=== PATIENT | female | born 1980 | race Caucasian/White ===

== ENCOUNTER → 2022-06-15 | Outpatient (CLI) | payer OTHER | LOC: M WHC 14:53 | PROVIDERS: ATTEND Family Medicine | DX: Z12.31 Encounter for screening mammogram for malignant neoplasm of breast (principal) ==

== ENCOUNTER → 2022-07-06 | Outpatient (CLI) | payer OTHER | LOC: M WHC 13:41 | PROVIDERS: ATTEND Family Medicine | DX: R92.8 Other abnormal and inconclusive findings on diagnostic imaging of breast (principal) ==

== ENCOUNTER 2023-05-20 11:15 | Outpatient (CLI) | payer OTHER ==
[2023-05-20] VITALS (7 sets, daily range): BP systolic 109–134; BP diastolic 57–92; O2SAT 99–100
[~2023-05-20] VITALS: Ht 157.5 cm; Wt 61.1 kg
[2023-05-20] MEDS ORDERED: TUMS500C PO (11:32)
[2023-05-20] MEDS ORDERED: PRENTAB9 PO (11:32)
[2023-05-20] MEDS ORDERED: ASPI81CH33 PO (11:32)
[2023-05-20] MEDS ORDERED: HOME MED LIST COMPLETE! XX SCH (11:35)
[2023-05-20] MEDS ORDERED: FLUCONAZOLE 50MG TABLET PO ONE (12:50)
[2023-05-20] MEDS: BETAMETHASONE SOLUSPAN 6MG/ML 5ML VIAL IM SCH (14:59)
[2023-05-20 15:35] LABS: HEMOGLOBIN 12.5 g/dl (12.0-15.5); MEAN CORPUSCULAR HEMOGLOBIN 30.3 pg (27.0-33.0); MEAN CORPUSCULAR HGB CONC 32.9 g/dl (32.0-36.5); MEAN CORPUSCULAR VOLUME 92.2 fl (80.0-96.0); PLATELET COUNT, AUTOMATED 206 10^3/uL (150-450); RED BLOOD COUNT 4.12 10^6/uL (4.00-5.40); WHITE BLOOD COUNT 4.7 10^3/uL (4.0-10.0)
[2023-05-20 15:56] LABS: GC DNA AMPLIFICATION NEGATIVE (NEGATIVE)
[2023-05-20 15:58] LABS: ALBUMIN 2.6 G/DL (3.2-5.2); ALKALINE PHOSPHATASE 107 U/L (46-116); ALT/SGPT 40 U/L (7.0-40); AST/SGOT 22 U/L (<34); BILIRUBIN,TOTAL 0.4 MG/DL (0.3-1.2); BLOOD UREA NITROGEN 12 MG/DL (9-23); CALCIUM LEVEL 8.8 MG/DL (8.5-10.1); CARBON DIOXIDE LEVEL 24 MMOL/L (20-31); CHLORIDE LEVEL 107 MMOL/L (98-107); CREATININE FOR GFR 0.64 MG/DL (0.55-1.30); GLOMERULAR FILTRATION RATE > 60.0 (>58); GLUCOSE, FASTING 119 MG/DL (60-100); POTASSIUM SERUM 3.7 MMOL/L (3.5-5.1); SODIUM LEVEL 139 MMOL/L (136-145); TOTAL PROTEIN 6.2 G/DL (5.7-8.2)
[2023-05-20] MEDS ORDERED: ACETAMINOPHEN 500 MG TAB PO ONE (16:45)
[2023-05-21 03:34] VITALS: BP 118/73
[2023-05-21 07:06] VITALS: BP 122/81
[2023-05-21 10:43] VITALS: BP 137/87
[2023-05-21] MEDS: BETAMETHASONE SOLUSPAN 6MG/ML 5ML VIAL IM SCH (15:29)
== END 2023-05-21 15:40 | disposition home or self-care (01) ==
LOC: M LDO 11:15
PROVIDERS: ATTEND Obstetrics & Gynecology
DX: O60.03 Preterm labor without delivery, third trimester (principal); O09.523 Supervision of elderly multigravida, third trimester; Z3A.35 35 weeks gestation of pregnancy; Z79.82 Long term (current) use of aspirin
CPT/HCPCS: 36415; 80053; 81001; 85027; 87081; 87086; 87810; 87850; J0702

== ENCOUNTER 2023-06-13 07:13 | Inpatient (IN) | payer OTHER ==
[~2023-06-13] VITALS: Ht 157.5 cm; Wt 63.2 kg
[2023-06-13] VITALS (14 sets, daily range): BP systolic 129–151; BP diastolic 70–91; O2SAT 98
[~2023-06-13 07:13] MED LIST: ASPI81CH33 PO; PRENTAB9 PO; TUMS500C PO
[2023-06-13] MEDS ORDERED: LACTATED RINGER'S 1000 ML IV STA (08:02)
[2023-06-13] MEDS ORDERED: CARBOPROST TROMETHAMINE 250 MCG/ML AMP IM PRN (08:05)
[2023-06-13] MEDS ORDERED: LR 1,000 ML IV SCH ×3 (08:05→20:45)
[2023-06-13] MEDS ORDERED: METHYLERGONOVINE MALEATE 0.2MG/ML 1ML VIAL IM PRN (08:05)
[2023-06-13] MEDS ORDERED: TRANEXAMIC ACID INJection 1,000 MG in NS 100 ML IV PRN (08:05)
[2023-06-13] MEDS ORDERED: OXYTOCIN INJ 10UNITS/ML 1ML VIAL IM PRN (08:05)
[2023-06-13] MEDS ORDERED: LIDOCAINE 1% MDV 20ML VIAL INFIL PRN (08:05)
[2023-06-13] MEDS ORDERED: OXYTOCIN DRIP 30 UNITS in IV 1 EA IV PRN ×6 (08:05)
[2023-06-13 08:52] LABS: HEMATOCRIT 38.5 % (36.0-47.0); HEMOGLOBIN 12.8 g/dl (12.0-15.5); MEAN CORPUSCULAR HEMOGLOBIN 30.7 pg (27.0-33.0); MEAN CORPUSCULAR HGB CONC 33.2 g/dl (32.0-36.5); MEAN CORPUSCULAR VOLUME 92.3 fl (80.0-96.0); PLATELET COUNT, AUTOMATED 189 10^3/uL (150-450); RED BLOOD COUNT 4.17 10^6/uL (4.00-5.40)
[2023-06-13] MEDS ORDERED: HOME MED LIST COMPLETE! XX SCH (09:30)
[2023-06-13] MEDS: miSOPROStol 50MCG 1/2 TABLET PO SCH ×2 (09:35→14:46)
[2023-06-13] MEDS ORDERED: OXYTOCIN DRIP 30 UNITS in IV 1 EA IV SCH ×5 (16:45→20:45)
[2023-06-13] MEDS ORDERED: NALBUPHINE HCL 1MG/0.1ML (100MG/10ML) MDV IV ONE (19:05)
[2023-06-13] MEDS ORDERED: ACETAMINOPHEN TAB 650MG DOSE (2X325MG) PO PRN (20:45)
[2023-06-13] MEDS ORDERED: ACETAMINOPHEN 500 MG TAB PO PRN (20:45)
[2023-06-13] MEDS ORDERED: METHYLERGONOVINE MALEATE 0.2 MG TAB PO PRN (20:45)
[2023-06-13] MEDS ORDERED: IBUPROFEN 600MG TAB PO PRN (20:45)
[2023-06-13] MEDS ORDERED: DOCUSATE SODIUM 100MG CAPSULE PO PRN (20:45)
[2023-06-13] MEDS ORDERED: DIBUCAINE 1% OINTMENT 30GM TOP PRN (20:45)
[2023-06-13] MEDS ORDERED: MOM 30ML SUSPENSION UDC PO PRN (20:45)
[2023-06-13] MEDS ORDERED: RHOGAM 300MCG (1500IU) INJ IM SCH (20:45)
[2023-06-13] MEDS: IBUPROFEN 800 MG TAB PO PRN (21:34)
[2023-06-14 06:00] VITALS: BP 121/76; O2SAT 97
[2023-06-14 06:42] LABS: HEMATOCRIT 35.3 % (36.0-47.0); MEAN CORPUSCULAR HEMOGLOBIN 30.8 pg (27.0-33.0); MEAN CORPUSCULAR VOLUME 90.5 fl (80.0-96.0); PLATELET COUNT, AUTOMATED 166 10^3/uL (150-450); WHITE BLOOD COUNT 8.7 10^3/uL (4.0-10.0)
[2023-06-14 07:00] LABS: URIC ACID 4.5 MG/DL (3.1-7.8)
[2023-06-14 07:01] LABS: LDH LACTATE DEHYDROGENASE 255 U/L (120-246)
[2023-06-14 07:02] LABS: ALT/SGPT 30 U/L (7.0-40); AST/SGOT 32 U/L (<34); BILIRUBIN,TOTAL 0.5 MG/DL (0.3-1.2); CREATININE FOR GFR 0.59 MG/DL (0.55-1.30); GLOMERULAR FILTRATION RATE > 60.0 (>58)
[2023-06-14] MEDS: PRENATAL VITAMINS CHEWABLE TABLET PO SCH (08:25)
[2023-06-14] MEDS: IBUPROFEN 800 MG TAB PO PRN (14:24)
[2023-06-14 18:00] VITALS: BP 133/82; O2SAT 96
[2023-06-15 06:00] VITALS: BP 124/72; O2SAT 98
[2023-06-15] MEDS ORDERED: MEASLES,MUMPS,RUBELLA VACCINE INJ (MMR-II) SC.IMMUN ONE (09:00)
[2023-06-15] MEDS ORDERED: ACET1TAB55 PO (09:22)
[2023-06-15] MEDS ORDERED: COLA100C5 PO (09:22)
[2023-06-15] MEDS ORDERED: IBUP-1022 PO (09:22)
[2023-06-15] MEDS: PRENATAL VITAMINS CHEWABLE TABLET PO SCH (10:08)
[2023-06-15] MEDS: IBUPROFEN 800 MG TAB PO PRN (15:28)
[2023-06-15 18:00] VITALS: BP 130/79; O2SAT 98
== END 2023-06-15 18:55 | disposition home or self-care (01) | DRG 807 ==
LOC: M LDI 07:13 → M OBS 22:42
PROVIDERS: ADMIT Advanced Practice Midwife; ATTEND Obstetrics & Gynecology
PROC: 10E0XZZ Delivery of Products of Conception, External Approach (ICD-10-PCS; principal; 2023-06-13)
PROC: 3E0P7GC Introduction of Other Therapeutic Substance into Female Reproductive, Via Natural or Artificial Opening (ICD-10-PCS; 2023-06-13)
PROC: 0HQ9XZZ Repair Perineum Skin, External Approach (ICD-10-PCS; 2023-06-13)
DX: O13.4 Gestational [pregnancy-induced] hypertension without significant proteinuria, complicating childbirth (principal); Z37.0 Single live birth; Z3A.39 39 weeks gestation of pregnancy; O70.0 First degree perineal laceration during delivery

== ENCOUNTER 2023-08-18 11:21 | Day surgery (SDC) | payer OTHER ==
[~2023-08-18] VITALS: Ht 172.7 cm; Wt 52.5 kg
[~2023-08-18 11:21] MED LIST changes: +ACET1TAB55 PO; +ACETAMINOPHEN *IV* 1,000 MG in IV 0 EA IV ONE; +COLA100C5 PO; +FLUO1TAB PO; +IBUP-1022 PO; +PNV,1TAB3 PO; +THERTAB52 PO
[2023-08-18 12:12] LABS: HEMATOCRIT 39.3 % (36.0-47.0)
[2023-08-18] MEDS ORDERED: LR 1,000 ML IV SCH ×3 (12:25→17:50)
[2023-08-18] MEDS ORDERED: fentaNYL 250 MCG/5 ML INJECTION As Ordered ONE (16:03)
[2023-08-18] MEDS ORDERED: ONDANSETRON 4MG 2ML VIAL As Ordered ONE (17:05)
[2023-08-18] MEDS ORDERED: KETOROLAC 60MG 2ML VIAL As Ordered ONE (17:05)
[2023-08-18] MEDS ORDERED: METOCLOPRAMIDE INJ 10MG/2ML VIAL As Ordered ONE (17:05)
[2023-08-18] MEDS ORDERED: SUGAMMADEX SODIUM 500 MG/5 ML VIAL (BRIDION) As Ordered ONE (17:05)
[2023-08-18] MEDS ORDERED: ACETAMINOPHEN 1000MG 100ML IV BAG As Ordered ONE (17:06)
[2023-08-18] MEDS ORDERED: fentaNYL 100 MCG/2 ML INJECTION IV PRN (17:45)
[2023-08-18] MEDS ORDERED: oxyCODONE 5MG TAB PO PRN (17:45)
[2023-08-18] MEDS ORDERED: HYDROMORPHONE HCL 0.5 MG/ 0.5 ML SYRINGE IV PRN (17:45)
[2023-08-18] MEDS ORDERED: ONDANSETRON 4MG 2ML VIAL IV PRN (17:45)
[2023-08-18 18:45] VITALS: BP 122/70; TEMP 98.2; O2SAT 100
[2023-08-18] MEDS ORDERED: KETOROLAC 30 MG/ML 1ML VIAL IV SCH (23:00)
== END 2023-08-18 18:54 | disposition home or self-care (01) ==
LOC: M SDC 11:21
PROVIDERS: ATTEND Obstetrics & Gynecology
DX: Z30.2 Encounter for sterilization (principal); F41.9 Anxiety disorder, unspecified; Z79.899 Other long term (current) drug therapy; Z90.49 Acquired absence of other specified parts of digestive tract
CPT/HCPCS: 36415; 58661; 81025; 85014; 85018; 86850; 86900; 86901; 88302; J0131; J0665; J1100; J1885; J2405; J2765; J3010